=== PATIENT | female | born 1985 ===

== ENCOUNTER 2020-11-10 06:00 | Day surgery (SDC) | payer OTHER ==
[~2020-11-10 06:00] MED LIST: AMBIEN5 MG PO; CLONAZEPAM1 MG PO; PROZA PO
[2020-11-10] MEDS ORDERED: PERCOCET 5-3251 EACH PO (10:51)
[2020-11-10] MEDS ORDERED: DERMOPLAST PAIN78 GM TOP (10:51)
== END 2020-11-10 15:05 | disposition home or self-care (01) ==
LOC: CIR.AMB 06:00
PROVIDERS: ATTEND Surgery
DX: K62.0 Anal polyp (principal); N84.3 Polyp of vulva; Z20.822 Contact with and (suspected) exposure to COVID-19